=== PATIENT | male | born 1980 | race Caucasian/White ===

== ENCOUNTER 2024-08-09 13:12 | Emergency (ER) | payer OTHER ==
[2024-08-09 13:19] VITALS: BP 131/76; PULSE 60; RESP 156; TEMP 98.3; BMI 28.1
[2024-08-09] MEDS ORDERED: ACETAMINOPHEN 500 MG TABLET (FP) ONE (14:16)
[2024-08-09] MEDS: ACETAMINOPHEN 500 MG TABLET (FP) PO ONE (14:18)
[2024-08-09] MEDS ORDERED: BACITRACIN ZINC 15 GM TUBE TOPICAL OINTMENT ONE (14:25)
[2024-08-09] MEDS: BACITRACIN ZINC 15 GM TUBE TOPICAL OINTMENT TP ONE (14:27)
== END 2024-08-09 14:30 | disposition home or self-care (01) ==
LOC: JERFT 13:12
DX: M79.645 Pain in left finger(s) (principal); M79.89 Other specified soft tissue disorders; Z48.02 Encounter for removal of sutures
CPT/HCPCS: 99282-25